=== PATIENT | female | born 1960 | race Hispanic/Latino ===

== ENCOUNTER 2016-10-30 21:44 | Inpatient (IN) | payer OTHER ==
[2016-10-30] MEDS ORDERED: ROCEPHIN IM ONE (22:36)
[2016-10-30] MEDS ORDERED: NACL 0.9% 1000 ML 1,000 ML IV ONE (22:36)
[2016-10-30] MEDS ORDERED: ZITHROMAX 500 MG in NACL 0.9% 250ML 250 ML IV ONE (22:36)
[2016-10-30] MEDS ORDERED: PROVENTIL IH ONE (22:36)
--- NOTE | 2016-10-30 22:42 | Emergency Department Report ---
ED Shortness of Breath HPI - General Chief Complaint: Dyspnea/Respdistress Stated Complaint: VERNON Time Seen by Provider: 10/30/16 22:17 Source: patient, EMS Mode of arrival: Stretcher Limitations: No Limitations - History of Present Illness MD Complaint: shortness of breath, cough -: Gradual Severity: moderate Quality: dull, aching Consistency: constant Improves With: nothing Worsens With: nothing Known History Of: COPD, asthma, congestive heart failure, recurrent pnemonia Context: recent URI Associated Symptoms: fever, cough, sputum production, hemoptysis Treatments Prior to Arrival: oxygen - Related Data Home Oxygen Therapy: No Previous Rx's Medication Instructions Recorded Last Taken Type Atenolol [Tenormin] 50 mg PO DAILY #30 tablet 08/30/15 Unknown Rx Budesonide [Pulmicort Respules] 0.5 mg IH Q12HRT #100 nebu 08/30/15 Unknown Rx Docusate Sodium [Colace CAP] 100 mg PO BID #30 capsule 08/30/15 Unknown Rx Famotidine [Pepcid] 10 mg PO BID #60 tablet 08/30/15 Unknown Rx Promethazine [Phenergan SUPPOS] 25 mg NH Q6HR PRN #14 supp.rect 08/30/15 Unknown Rx Zolpidem [Ambien] 5 mg PO QHS #30 tablet 08/30/15 Unknown Rx Ibuprofen [Motrin 400 MG tab] 400 mg PO Q8H PRN #30 tablet 04/06/16 Unknown Rx ALPRAZolam [Xanax TAB] 1 mg PO QDAY PRN #10 tablet 10/31/16 Unknown Rx HYDROcodone/APAP 10-325 [[place] 1 each PO BID #10 tablet 10/31/16 Unknown Rx 10-325 mg TAB] Allergies Allergy/AdvReac Type Severity Reaction Status Date / Time metoclopramide HCl Allergy Hives Verified 04/06/16 03:54 [From Reglan] ondansetron HCl [From Zofran] Allergy Hives Verified 04/06/16 03:54 ED Review of Systems ROS: Stated complaint: VERNON Other details as noted in HPI Comment: All other systems reviewed and negative ED Past Medical Hx - Past Medical History Hx Hypertension: Yes Hx Congestive Heart Failure: Yes Hx Diabetes: No Hx Renal Disease: Yes (chronic renal insufficiency) Hx Arthritis: Yes (rheumatoid) Hx Asthma: No Hx COPD: Yes Hx Dementia: (forgetful at times) Hx HIV: No Additional medical history: Pancreatitis. Hepatitis C. chronic back pain. restless leg syndrome - Surgical History Hx Cholecystectomy: Yes - Social History Smoking Status: Current Every Day Smoker Substance Use Type: None - Medications Home Medications: Home Medications Medication Instructions Recorded Confirmed Last Taken Type Atenolol [Tenormin] 50 mg PO DAILY #30 tablet 08/30/15 04/06/16 Unknown Rx Budesonide [Pulmicort Respules] 0.5 mg IH Q12HRT #100 nebu 08/30/15 04/06/16 Unknown Rx Docusate Sodium [Colace CAP] 100 mg PO BID #30 capsule 08/30/15 04/06/16 Unknown Rx Famotidine [Pepcid] 10 mg PO BID #60 tablet 08/30/15 04/06/16 Unknown Rx Promethazine [Phenergan SUPPOS] 25 mg NH Q6HR PRN #14 supp.rect 08/30/15 Unknown Rx Zolpidem [Ambien] 5 mg PO QHS #30 tablet 08/30/15 04/06/16 Unknown Rx Ibuprofen [Motrin 400 MG tab] 400 mg PO Q8H PRN #30 tablet 04/06/16 Unknown Rx ALPRAZolam [Xanax TAB] 1 mg PO QDAY PRN #10 tablet 10/31/16 Unknown Rx HYDROcodone/APAP 10-325 [[place] 1 each PO BID #10 tablet 10/31/16 Unknown Rx 10-325 mg TAB] ED Physical Exam - General Limitations: No Limitations General appearance: alert, in no apparent distress - Head Head exam: Present: atraumatic, normocephalic - Eye Eye exam: Present: normal appearance, PERRL, EOMI - ENT ENT exam: Present: normal exam, normal orophraynx, mucous membranes moist - Neck Neck exam: Present: normal inspection - Respiratory Respiratory exam: Present: normal lung sounds bilaterally, wheezes, rhonchi, decreased breath sounds, prolonged expiratory. Absent: respiratory distress, rales, stridor, chest wall tenderness, accessory muscle use - Cardiovascular Cardiovascular Exam: Present: regular rate, normal rhythm. Absent: systolic murmur, diastolic murmur, rubs, gallop - GI/Abdominal GI/Abdominal exam: Present: soft, normal bowel sounds - Extremities Exam Extremities exam: Present: normal inspection - Back Exam Back exam: Present: normal inspection - Neurological Exam Neurological exam: Present: alert, oriented X3 - Psychiatric Psychiatric exam: Present: normal affect, normal mood - Skin Skin exam: Present: warm, dry, intact, normal color. Absent: rash ED Course Vital Signs 10/30/16 10/30/16 10/30/16 21:56 22:00 22:05 Temperature 97.5 F L Pulse Rate 90 89 93 H Pulse Rate [ Anterior Bilateral Throughout] Respiratory 20 12 20 Rate Respiratory Rate [Anterior Bilateral Throughout] Blood Pressure 112/68 112/68 O2 Sat by Pulse 98 94 99 Oximetry 10/30/16 10/30/16 10/30/16 22:15 22:21 22:40 Temperature Pulse Rate 90 Pulse Rate [ Anterior Bilateral Throughout] Respiratory 12 Rate Respiratory Rate [Anterior Bilateral Throughout] Blood Pressure 112/68 112/68 100/66 O2 Sat by Pulse 83 L 96 93 Oximetry 10/30/16 10/30/16 10/30/16 22:51 23:00 23:08 Temperature Pulse Rate 86 87 Pulse Rate [ 87 Anterior Bilateral Throughout] Respiratory 12 17 Rate Respiratory 18 Rate [Anterior Bilateral Throughout] Blood Pressure 100/66 114/53 O2 Sat by Pulse 95 94 Oximetry 10/30/16 10/30/16 10/30/16 23:11 23:18 23:21 Temperature Pulse Rate 86 88 Pulse Rate [ 87 Anterior Bilateral Throughout] Respiratory 11 L 13 Rate Respiratory 18 Rate [Anterior Bilateral Throughout] Blood Pressure 100/66 120/66 O2 Sat by Pulse 97 96 Oximetry 10/30/16 10/30/16 10/30/16 23:30 23:41 23:48 Temperature Pulse Rate 90 92 H Pulse Rate [ Anterior Bilateral Throughout] Respiratory 12 12 Rate Respiratory Rate [Anterior Bilateral Throughout] Blood Pressure 110/64 114/53 O2 Sat by Pulse 94 94 97 Oximetry 10/31/16 10/31/16 00:29 00:30 Temperature Pulse Rate 98 H 96 H Pulse Rate [ Anterior Bilateral Throughout] Respiratory 17 12 Rate Respiratory Rate [Anterior Bilateral Throughout] Blood Pressure 113/71 134/77 O2 Sat by Pulse 96 97 Oximetry ED Medical Decision Making - Lab Data Result diagrams: 10/31/16 00:39 10/30/16 22:37 - EKG Data Interpretation: no acute changes - Radiology Data Radiology results: report reviewed, image reviewed - Medical Decision Making patient been doing well, labs negative and she is doing and breathing back to normal with 2 lt of oxygen, abx were given but no evidence of pneumonia, chest ct ruled out for PE after elevated ddimer, i do not see any reason for admission at this time , she is talking and walking and eating with no evidence of respiratory distress. 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 Critical care attestation.: If time is entered above; I have spent that time in minutes in the direct care of this critically ill patient, excluding procedure time. ED Disposition Clinical Impression: COPD (chronic obstructive pulmonary disease) with emphysema Disposition: TO HOME OR SELFCARE Is pt being admited?: No Does the pt Need Aspirin: No Condition: Stable Instructions: Chronic Obstructive Pulmonary Disease (ED) Prescriptions: ALPRAZolam [Xanax TAB] 1 mg PO QDAY PRN #10 tablet PRN Reason: Anxiety HYDROcodone/APAP 10-325 [[place] 10-325 mg TAB] 1 each PO BID #10 tablet Time of Disposition: 01:32
[2016-10-30] MEDS ORDERED: DILAUDID IV ONE (23:00)
[2016-10-30] MEDS ORDERED: ROCEPHIN/NS 1 GM/50 ML 1 GM/50 ML BAG IV ONE ×2 (23:01→23:17)
--- NOTE | 2016-10-30 23:17 | XRay Report ---
FINAL REPORT EXAM: XR CHEST ROUTINE 2V HISTORY: Shortness of breath TECHNIQUE: PA and lateral chest radiographs PRIORS: Chest radiograph 08/20/2015 FINDINGS: There is increased opacity in the right lung base. This was present on the prior examination as well. Left lung appears clear. No pleural effusion is seen. Heart size is within normal limits. No acute osseous abnormality is identified. IMPRESSION: 1. There is increased opacity in the right middle lobe. This may be secondary to infection, but neoplastic process is not excluded. This can be further assessed with CT if indicated. Continued follow-up is recommended to assure resolution.
[2016-10-30 23:41] LABS: Anion Gap 19 mmol/L; BUN/Creatinine Ratio 17.27; Blood Urea Nitrogen 19 mg/dL (7-17); Calcium 8.6 mg/dL (8.4-10.2); Carbon Dioxide 20 mmol/L (22-30); Chloride 102.4 mmol/L (98-107); Glucose 103 mg/dL (65-100); Potassium 3.9 mmol/L (3.6-5.0); Sodium 137 mmol/L (137-145)
[2016-10-31] MEDS ORDERED: NACL ONE (00:05)
--- NOTE | 2016-10-31 01:03 | Cat Scan Report ---
FINAL REPORT PROCEDURE: CT ANGIO CHEST TECHNIQUE: Computerized tomographic angiography of the chest was performed during the IV injection of iodinated nonionic contrast including image processing. The image data was postprocessed using 2-dimensional multiplanar reformatted (MPR) and 3-dimensional (MIP and/or volume rendered) techniques. HISTORY: chest pain / sob possible PE COMPARISON: No prior studies are available for comparison. FINDINGS: Pulmonary outflow tract, right and left main pulmonary arteries and their proximal branches: Clear, no filling defects seen to suggest pulmonary embolus. Pericardium: No evidence of pericardial effusion. Thoracic aorta: No evidence of aneurysmal dilatation or dissection. Coronary arteries: Are unremarkable. Mediastinum and hilar regions: Nonspecific subcentimeter lymph nodes are visualized. No pathologically enlarged lymph nodes or masses are identified. Lung Carpenter: Moderate diffuse centrilobular emphysematous changes are present. Diffuse prominence interstitial markings seen throughout the right lower lobe and also extending into the right middle lobe and to a lesser extent left lower lobe suggesting acute interstitial infiltrate. No dense consolidations or effusions are identified. Upper abdomen: No acute or focal abnormality is seeen. Other: None IMPRESSION: No evidence of pulmonary embolus. Moderate diffuse centrilobular emphysematous changes present. Diffuse interstitial infiltrates visualized throughout the right lower lobe right middle lobe and to a lesser extent left lower lobe.
[2016-10-31 01:07] LABS: Basophils % (Auto) 0.2 % (0.0-1.8); Eosinophils % (Auto) 0.2 % (0.0-4.3); Hematocrit 33.4 % (30.3-42.9); Hemoglobin 10.7 gm/dl (10.1-14.3); Mean Corpuscular HGB Conc 32 % (30-34); Mean Corpuscular Hemoglobin 32 pg (28-32); Mean Corpuscular Volume 101 fl (79-97); Platelet Count 178 K/mm3 (140-440); Red Blood Count 3.31 M/mm3 (3.65-5.03); Red Cell Distribution Width 14.3 % (13.2-15.2); White Blood Count 8.6 K/mm3 (4.5-11.0)
[2016-10-31] MEDS ORDERED: NORCO 10/325 PO ONE (01:53)
[2016-10-31] MEDS ORDERED: PHENERGAN PO PRN (02:26)
[2016-10-31] MEDS: MORPHINE IV PRN ×2 (02:41→09:34)
[2016-10-31 03:23] LABS: ISTAT Base Excess -11; ISTAT DEVICE 0; ISTAT HCO3 16.5; ISTAT PCO2 41.2 (35-45); ISTAT PO2 54 (80-105); ISTAT SO2 81; ISTAT TCO2 18
--- NOTE | 2016-10-31 07:52 | Admit Criteria Form ---
Admission Criteria Documentation: COPD Clinical Indications for Admission to Inpatient Care (Place 'X' for any and all applicable criteria): Admission is indicated for ANY ONE of the following (1)(2)(3): [ ]I. Acute exacerbation by high-risk comorbidity (e.g., pneumonia, dysrhythmia, heart failure, pleural effusion, pneumothorax) or severe underlying COPD (e.g., steroid dependent) [ X]II. Inpatient admission required rather than observation care (see Chronic Obstructive Pulmonary Disease: Observation Care) because of ANY ONE of the following: [ X]a) New or pre-existing signs or symptoms of COPD (eg, dyspnea or Tachypnea at rest or with minimal activity) that persist despite outpatient and observation care treatment [ ]b) New-onset hypoxemia (room air SaO2 less than 90%, PO2 less than 60 mm Hg (8.0 kPa)) that persists despite outpatient and observation care treatment [ ]c) Worsening of pre-existing hypoxemia (eg, new or increased requirement for supplemental oxygen to maintain oxygenation at baseline level) that persists despite outpatient and observation care treatment, with oxygen treatment needs performable only in acute inpatient setting [ ]d) Hypercarbia (PCO2 greater than 40 mm Hg (5.3 kPa))-induced respiratory acidosis (pH less than 7.35) that persists despite outpatient and observation care treatment [ ]e) Supplemental oxygen or respiratory treatments for over 24 hours that are performable only in acute inpatient setting [ ]f) Chest tube placement with active evacuation (e.g., suction, drainage) (5) [ ]g) Other condition, treatment or monitoring requiring inpatient admission [ ]III. Planned invasive surgical or diagnostic procedures requiring acute- care hospitalization [ ]IV. Acute respiratory failure (e.g., uncompensated hypercarbia, severe hypoxemia) [ ]V. Severe comorbid condition (e.g., severe steroid myopathy, acute vertebral fracture) that has acutely worsened pulmonary function [ ]. Confusion state, lethargy, obtundation, stupor or coma Extended stay beyond goal length of stay may be needed for (31)(32): [ ]a ) Respiratory Failure. [ ]b) Severe or persisting hypoxemia or hypercarbia [ ]c) Severe or persistent dyspnea [ ]d) Comorbidities (e.g. chronic heart failure, atrial fibrillation with rapid response, pneumonia) [ ]e) Malnutrition The original [facility] content created by [facility] has been revised. The portions of the content which have been revised are identified through the use of italic text or in bold, and [facility] has neither reviewed nor approved the modified material. All other unmodified content is copyright [facility]. Please see references footnoted in the original [facility] edition 2016 Admission Criteria Met: Yes
[2016-10-31] MEDS ORDERED: XYLOCAINE 1% MPF 5 mL INFILTRATI ONE (09:01)
[2016-10-31] MEDS ORDERED: ZOFRAN IV PRN (09:03)
[2016-10-31] MEDS ORDERED: TYLENOL PO PRN (09:03)
[2016-10-31] MEDS ORDERED: DULCOLAX PR PRN (09:03)
[2016-10-31] MEDS ORDERED: MILK OF MAGNESIA PO PRN (10:00)
[2016-10-31] MEDS ORDERED: ZITHROMAX 500 MG in NACL 0.9% 250ML 250 ML IV ONE (10:00)
[2016-10-31] MEDS ORDERED: ATENOLOL 50 MG PO SCH (10:00)
[2016-10-31] MEDS ORDERED: ROCEPHIN IM SCH (10:00)
[2016-10-31] MEDS ORDERED: MORPHINE IV PRN (11:00)
[2016-10-31] MEDS: PEPCID PO SCH ×2 (11:31→22:39)
[2016-10-31] MEDS: TENORMIN PO SCH (13:21)
[2016-10-31] MEDS: LOVENOX SUB-Q SCH (13:22)
--- NOTE | 2016-10-31 13:25 | History and Physical Report ---
<REBECCA PERDOMO - Last Filed: 10/31/16 14:31> History of Present Illness Date of examination: 10/31/16 Date of admission: 10/31/16 09:03 Chief complaint: Cough and shortness of breath History of present illness: Patient is a 56 year old female with past medical historyof COPD, HTN and GERD who presenting with 3 weeks of worsening dyspnea on light exertion, and bloody cough. Patient over a week ago the patient was at his normal baseline state of health. Now she has had progressive worsening of his dyspnea on exertion (SEGURA) to where she cannot walk across a room or talk while sitting up without becoming short of breath. She says the quality of her breathing is just like suffocating but she denies burning in her lungs or other feelings. she says that hot temperatures bring on her breathing troubles and coughing while cold temperatures will help relieve those symptoms. Additionally, she has a productive cough with blood tinged sputum. She has tried oxygen supplement to help her with her shortness of breath, but did not help much. She has had no fevers, chills, or night sweats. He has no allergies, seasonal or otherwise. She reports feeling like she is wheezing. She denies orthopnea, and no paroxysmal nocturnal dyspnea. No hx of recurrent pneumonia. She has no sick contact, TB exposure that she knows of Past History Past Medical History: COPD, GERD, hypertension Past Surgical History: No surgical history Social history: no significant social history, Lives alone Family history: CAD, hypertension Medications and Allergies Allergies Allergy/AdvReac Type Severity Reaction Status Date / Time metoclopramide HCl Allergy Hives Verified 04/06/16 03:54 [From Reglan] ondansetron HCl [From Zofran] Allergy Hives Verified 04/06/16 03:54 Home Medications Medication Instructions Recorded Confirmed Last Taken Type Atenolol [Tenormin] 50 mg PO DAILY #30 tablet 08/30/15 10/31/16 Unknown Rx Docusate Sodium [Colace CAP] 100 mg PO BID #30 capsule 08/30/15 10/31/16 Unknown Rx Famotidine [Pepcid] 10 mg PO BID #60 tablet 08/30/15 10/31/16 Unknown Rx Promethazine [Phenergan SUPPOS] 25 mg DC Q6HR PRN #14 supp.rect 08/30/15 Unknown Rx Zolpidem [Ambien] 5 mg PO QHS #30 tablet 08/30/15 10/31/16 Unknown Rx ALPRAZolam [Xanax TAB] 1 mg PO QDAY PRN #10 tablet 10/31/16 Unknown Rx ALPRAZolam [Xanax TAB] 1 mg PO TID PRN 10/31/16 10/31/16 Unknown History Budesoni/Formoterol 80-4.5(Nf) 2 puff IH BID 10/31/16 10/31/16 Unknown History [Symbicort 80-4.5 (Nf)] HYDROcodone/APAP 10-325 [[place] 1 each PO BID #10 tablet 10/31/16 Unknown Rx 10-325 mg TAB] Methadone 10 BID 10/31/16 Unknown History Active Meds: Active Medications Acetaminophen (Tylenol) 650 mg PO Q4H PRN PRN Reason: Pain MILD(1-3)/Fever >100.5/[place] Albuterol/Ipratropium (Duoneb 0.5 Mg-3 Mg/3 Ml Soln) 1 ampul IH Q6HRT [facility] Atenolol (Tenormin) 50 mg PO QDAY [facility] Bisacodyl (Dulcolax) 10 mg DC QDAY PRN PRN Reason: Constipation unrelieved by MOM Enoxaparin Sodium (Lovenox) 40 mg SUB-Q QDAY [facility] Famotidine (Pepcid) 10 mg PO BID [facility] Last Admin: 10/31/16 11:31 Dose: 10 mg Ceftriaxone Sodium (Rocephin/Ns 1 Gm/50 Ml) 1 gm in 50 mls @ 100 mls/hr IV QHS [place] Magnesium Hydroxide (Milk Of Magnesia) 30 ml PO Q4H PRN PRN Reason: Constipation Methylprednisolone Sodium Succinate (Solu-Medrol) 40 mg IV Q6HR [place] Morphine Sulfate (Morphine) 4 mg IV Q6H PRN PRN Reason: Pain , Severe (7-10) Last Admin: 10/31/16 09:34 Dose: 4 mg Morphine Sulfate (Morphine) 2 mg IV Q4H PRN PRN Reason: Pain, Moderate (4-6) Pneumococcal Polyvalent Vaccine (Pneumovax 23) 0.5 ml IM .ONCE ONE Stop: 11/01/16 12:01 Promethazine HCl (Phenergan) 12.5 mg PO Q6H PRN PRN Reason: Nausea Last Admin: 10/31/16 02:45 Dose: 12.5 mg Zolpidem Tartrate (Ambien) 5 mg PO QHS [facility] Review of Systems Constitutional: no weight loss, no weight gain, no fever, no chills Ears, nose, mouth and throat: no deferred, no ear pain, no ear discharge Cardiovascular: no chest pain, no orthopnea, no palpitations Respiratory: no cough, no cough with sputum, no excessive sputum Gastrointestinal: no abdominal pain, no nausea, no vomiting, no diarrhea, no constipation Genitourinary Female: no dyspareunia, no dysmenorrhea, no pelvic pain Menstruation: no currently menstrual, no premenarcheal, no post hysterectomy, no ammenorrhea Rectal: no pain, no incontinence Musculoskeletal: no neck stiffness, no neck pain, no shooting arm pain Integumentary: no rash, no pruritis, no redness, no sores Neurological: no head injury, no transient paralysis, no paralysis, no weakness Psychiatric: no anxiety, no memory loss, no change in sleep habits, no sleep disturbances Endocrine: no cold intolerance, no heat intolerance, no polyphagia Hematologic/Lymphatic: no easy bruising, no easy bleeding Allergic/Immunologic: no urticaria, no allergic rhinitis Exam - Constitutional Vitals: Temp Pulse Resp BP Pulse Ox 98.1 F 83 22 133/75 95 10/31/16 13:00 10/31/16 13:00 10/31/16 13:00 10/31/16 13:00 10/31/16 13:00 General appearance: Present: mild distress - EENT Eyes: Present: PERRL ENT: hearing intact, clear oral mucosa - Neck Neck: Present: supple - Respiratory Respiratory effort: normal Respiratory: bilateral: wheezing - Cardiovascular Heart rate: 84 Rhythm: regular Heart Sounds: Present: S1 & S2 - Extremities Extremities: no ischemia Peripheral Pulses: within normal limits - Abdominal General gastrointestinal: Present: soft, non-tender - Rectal Rectal Exam: deferred - Integumentary Integumentary: Present: clear, warm, dry - Musculoskeletal Musculoskeletal: strength equal bilaterally - Psychiatric Psychiatric: appropriate mood/affect - Neurologic Neurologic: CNII-XII intact - Allied Health Allied health notes reviewed: nursing Results - Labs CBC & Chem 7: 10/31/16 00:39 10/30/16 22:37 Labs: Laboratory Last Values WBC 8.6 K/mm3 (4.5-11.0) 10/31/16 00:39 RBC 3.31 M/mm3 (3.65-5.03) L 10/31/16 00:39 Hgb 10.7 gm/dl (10.1-14.3) 10/31/16 00:39 Hct 33.4 % (30.3-42.9) 10/31/16 00:39 MCV 101 fl (79-97) H 10/31/16 00:39 MCH 32 pg (28-32) 10/31/16 00:39 MCHC 32 % (30-34) 10/31/16 00:39 RDW 14.3 % (13.2-15.2) 10/31/16 00:39 Plt Count 178 K/mm3 (140-440) 10/31/16 00:39 Lymph % (Auto) 9.3 % (13.4-35.0) L 07 00:39 [place] % (Auto) 3.5 % (0.0-7.3) 10/31/16 00:39 Eos % (Auto) 0.2 % (0.0-4.3) 10/31/16 00:39 Baso % (Auto) 0.2 % (0.0-1.8) 10/31/16 00:39 Lymph # 0.8 K/mm3 (1.2-5.4) L 10/31/16 00:39 [place] # 0.3 K/mm3 (0.0-0.8) 10/31/16 00:39 Eos # 0.0 K/mm3 (0.0-0.4) 10/31/16 00:39 Baso # 0.0 K/mm3 (0.0-0.1) 10/31/16 00:39 Seg Neutrophils % 86.8 % (40.0-70.0) H 10/31/16 00:39 Seg Neutrophils # 7.5 K/mm3 (1.8-7.7) 10/31/16 00:39 D-Dimer 1001.95 ng/mlDDU (0-234) H 10/30/16 22:37 POC ABG pH 7.210 (7.35-7.45) L 10/31/16 03:14 POC ABG pCO2 41.2 (35-45) 10/31/16 03:14 POC ABG pO2 54 (80-105) L 10/31/16 03:14 POC ABG HCO3 16.5 10/31/16 03:14 POC ABG Total CO2 18 10/31/16 03:14 POC ABG O2 Sat 81 10/31/16 03:14 POC ABG Base Excess -11 10/31/16 03:14 FiO2 21 % 10/31/16 03:14 Sodium 137 mmol/L (137-145) 10/30/16 22:37 Carbon Dioxide 20 mmol/L (22-30) L 10/30/16 22:37 BUN 19 mg/dL (7-17) H 10/30/16 22:37 Creatinine 1.1 mg/dL (0.7-1.2) 10/30/16 22:37 Estimated GFR 52 ml/min 10/30/16 22:37 BUN/Creatinine Ratio 17.27 % 10/30/16 22:37 Glucose 103 mg/dL (65-100) H 10/30/16 22:37 Lactic Acid 1.00 mmol/L (0.7-2.0) 10/30/16 22:53 Calcium 8.6 mg/dL (8.4-10.2) 10/30/16 22:37 Troponin T < 0.010 ng/mL (0.00-0.029) 10/30/16 22:37 - Imaging and Cardiology CT scan - abdomen: image reviewed (Right lower lobe and the right middle lobe with acute interstitial infiltration) Assessment and Plan Assessment and plan: ASSESSMENT/PLAN Pneumonia we will admite to MED/SURG floor. Chest x-ray reveals Right lower lobe and the right middle lobe with acute interstitial infiltration Blood culture collected prior antibiotic and we will follow cultures Continue on empiric antibiotic treatment IV Rocephin and azithromycin Continue nebulizer therapy ordered supplemental oxygen as needed Discussed the patient to use Incentive spirometry, Elevated d-dimer CTA shows low risk for pulmonary embolism Doppler VL Bilateral ordered Hypertension we will continue home antihypertensive meds GERD IV Protonix ordered DVT prophylaxis Lovenox <DILIP BOB - Last Filed: 10/31/16 19:14> History of Present Illness Date of admission: 10/31/16 09:03 Medications and Allergies Active Meds: Active Medications Acetaminophen (Tylenol) 650 mg PO Q4H PRN PRN Reason: Pain MILD(1-3)/Fever >100.5/[place] Acetaminophen/Hydrocodone Bitart ([place] 10/325) 1 each PO Q6H PRN PRN Reason: Pain, Moderate (4-6) Last Admin: 10/31/16 18:57 Dose: 1 each Albuterol/Ipratropium (Duoneb 0.5 Mg-3 Mg/3 Ml Soln) 1 ampul IH Q6HRT [facility] Last Admin: 10/31/16 13:32 Dose: 1 ampul Alprazolam (Xanax) 1 mg PO TID PRN PRN Reason: Anxiety Last Admin: 10/31/16 16:56 Dose: 1 mg Atenolol (Tenormin) 50 mg PO QDAY [facility] Last Admin: 10/31/16 13:21 Dose: 50 mg Bisacodyl (Dulcolax) 10 mg DC QDAY PRN PRN Reason: Constipation unrelieved by MOM Docusate Sodium (Colace) 100 mg PO BID [facility] Enoxaparin Sodium (Lovenox) 40 mg SUB-Q QDAY [facility] Last Admin: 10/31/16 13:22 Dose: 40 mg Famotidine (Pepcid) 10 mg PO BID [facility] Last Admin: 10/31/16 11:31 Dose: 10 mg Ceftriaxone Sodium (Rocephin/Ns 1 Gm/50 Ml) 1 gm in 50 mls @ 100 mls/hr IV QHS [facility] Magnesium Hydroxide (Milk Of Magnesia) 30 ml PO Q4H PRN PRN Reason: Constipation Methadone HCl (Dolophine) 10 mg PO BID [facility] Methylprednisolone Sodium Succinate (Solu-Medrol) 40 mg IV Q6HR [facility] Last Admin: 10/31/16 18:37 Dose: 40 mg Nicotine (Habitrol) 21 mg TD QDAY [facility] Last Admin: 10/31/16 16:56 Dose: 21 mg Pneumococcal Polyvalent Vaccine (Pneumovax 23) 0.5 ml IM .ONCE ONE Stop: 11/01/16 12:01 Promethazine HCl (Phenergan) 12.5 mg PO Q6H PRN PRN Reason: Nausea Last Admin: 10/31/16 02:45 Dose: 12.5 mg Zolpidem Tartrate (Ambien) 5 mg PO QHS [facility] Exam - Constitutional Vitals: Temp Pulse Resp BP Pulse Ox 99.1 F 85 22 133/72 97 10/31/16 14:57 10/31/16 14:57 10/31/16 14:57 10/31/16 14:57 10/31/16 14:57 Results - Labs CBC & Chem 7: 10/31/16 00:39 10/30/16 22:37 Labs: Laboratory Last Values WBC 8.6 K/mm3 (4.5-11.0) 10/31/16 00:39 RBC 3.31 M/mm3 (3.65-5.03) L 10/31/16 00:39 Hgb 10.7 gm/dl (10.1-14.3) 10/31/16 00:39 Hct 33.4 % (30.3-42.9) 10/31/16 00:39 MCV 101 fl (79-97) H 10/31/16 00:39 MCH 32 pg (28-32) 10/31/16 00:39 MCHC 32 % (30-34) 10/31/16 00:39 RDW 14.3 % (13.2-15.2) 10/31/16 00:39 Plt Count 178 K/mm3 (140-440) 10/31/16 00:39 Lymph % (Auto) 9.3 % (13.4-35.0) L 10/31/16 00:39 [place] % (Auto) 3.5 % (0.0-7.3) 10/31/16 00:39 Eos % (Auto) 0.2 % (0.0-4.3) 10/31/16 00:39 Baso % (Auto) 0.2 % (0.0-1.8) 10/31/16 00:39 Lymph # 0.8 K/mm3 (1.2-5.4) L 10/31/16 00:39 [place] # 0.3 K/mm3 (0.0-0.8) 10/31/16 00:39 Eos # 0.0 K/mm3 (0.0-0.4) 10/31/16 00:39 Baso # 0.0 K/mm3 (0.0-0.1) 10/31/16 00:39 Seg Neutrophils % 86.8 % (40.0-70.0) H 10/31/16 00:39 Seg Neutrophils # 7.5 K/mm3 (1.8-7.7) 10/31/16 00:39 D-Dimer 1001.95 ng/mlDDU (0-234) H 10/30/16 22:37 POC ABG pH 7.210 (7.35-7.45) L 10/31/16 03:14 POC ABG pCO2 41.2 (35-45) 10/31/16 03:14 POC ABG pO2 54 (80-105) L 10/31/16 03:14 POC ABG HCO3 16.5 10/31/16 03:14 POC ABG Total CO2 18 10/31/16 03:14 POC ABG O2 Sat 81 10/31/16 03:14 POC ABG Base Excess -11 10/31/16 03:14 FiO2 21 % 10/31/16 03:14 Sodium 137 mmol/L (137-145) 10/30/16 22:37 Carbon Dioxide 20 mmol/L (22-30) L 10/30/16 22:37 BUN 19 mg/dL (7-17) H 10/30/16 22:37 Creatinine 1.1 mg/dL (0.7-1.2) 10/30/16 22:37 Estimated GFR 52 ml/min 10/30/16 22:37 BUN/Creatinine Ratio 17.27 % 10/30/16 22:37 Glucose 103 mg/dL (65-100) H 10/30/16 22:37 Lactic Acid 1.00 mmol/L (0.7-2.0) 10/30/16 22:53 Calcium 8.6 mg/dL (8.4-10.2) 10/30/16 22:37 Troponin T < 0.010 ng/mL (0.00-0.029) 10/30/16 22:37 Assessment and Plan Assessment and plan: I saw and evaluated the patient. I agree with the findings and the plan of care as documented in the Nurse Practitioner's~note, with the following corrections and additions. COPD EXACERBATION.
[2016-10-31] MEDS: DUONEB *Not for PRN Use IH SCH ×2 (13:32→20:48)
[2016-10-31] MEDS: HABITROL TD SCH (16:56)
[2016-10-31] MEDS: XANAX PO PRN ×2 (16:56→22:40)
[2016-10-31] MEDS ORDERED: NORCO 10/325 PO PRN (17:20)
[2016-10-31] MEDS ORDERED: PHENERGAN PR PRN (19:14)
[2016-10-31] MEDS ORDERED: ROCEPHIN/NS 1 GM/50 ML 1 GM/50 ML BAG IV SCH (22:00)
[2016-10-31] MEDS ORDERED: METHADONE 10 MG PO SCH (22:00)
[2016-10-31] MEDS ORDERED: DOLOPHINE PO SCH (22:00)
[2016-10-31] MEDS: DOLOPHINE PO SCH (22:40)
[2016-10-31] MEDS: AMBIEN PO SCH (22:41)
[2016-10-31] MEDS: COLACE PO SCH (22:41)
[2016-11-01] MEDS: AMBIEN PO SCH (00:09)
[2016-11-01] MEDS: DUONEB *Not for PRN Use IH SCH ×3 (03:38→14:36)
--- NOTE | 2016-11-01 07:17 | Progress Note ---
<REBECCA PERDOMO - Last Filed: 11/01/16 11:24> Assessment and Plan Assessment and plan: ASSESSMENT/PLAN Pneumonia Chest x-ray reveals Right lower lobe and the right middle lobe with acute interstitial infiltration Blood culture collected prior antibiotic and we will follow cultures Continue on empiric antibiotic treatment IV Rocephin and azithromycin Continue nebulizer therapy supplemental oxygen as needed Discussed the patient to use Incentive spirometry, COPD Exacerbation Continue Duoneb Q6hrs Continue Solu-Medrol every 6 hours Elevated d-dimer CTA shows low risk for pulmonary embolism Awaiting for Doppler VL Bilateral findings Hypertension we will continue home antihypertensive meds GERD IV Protonix ordered DVT prophylaxis Lovenox History Interval history: Patient has uneventful overnight, she verbalized feeing better. patient complains Dyspnea on exertion, but denies bloody cough. Hospitalist Physical - Constitutional Vitals: Temp Pulse Resp BP Pulse Ox 98.3 F 83 16 166/82 95 10/31/16 23:00 10/31/16 23:00 10/31/16 23:00 10/31/16 23:00 10/31/16 23:00 General appearance: Present: mild distress - EENT Eyes: Present: PERRL ENT: hearing intact - Neck Neck: Present: supple - Respiratory Respiratory effort: normal Respiratory: bilateral: rales - Cardiovascular Heart rate: 78 Rhythm: regular - Extremities Extremities: no ischemia Peripheral Pulses: within normal limits - Abdominal General gastrointestinal: soft, non-tender - Integumentary Integumentary: Present: clear, warm - Psychiatric Psychiatric: appropriate mood/affect - Neurologic Neurologic: CNII-XII intact - Allied Health Allied health notes reviewed: nursing Results - Labs CBC & Chem 7: 11/01/16 07:35 11/01/16 07:35 Labs: Laboratory Last Values WBC 8.6 K/mm3 (4.5-11.0) 10/31/16 00:39 RBC 3.31 M/mm3 (3.65-5.03) L 10/31/16 00:39 Hgb 10.7 gm/dl (10.1-14.3) 10/31/16 00:39 Hct 33.4 % (30.3-42.9) 10/31/16 00:39 MCV 101 fl (79-97) H 10/31/16 00:39 MCH 32 pg (28-32) 10/31/16 00:39 MCHC 32 % (30-34) 10/31/16 00:39 RDW 14.3 % (13.2-15.2) 10/31/16 00:39 Plt Count 178 K/mm3 (140-440) 07 00:39 Lymph % (Auto) 9.3 % (13.4-35.0) L 10/31/16 00:39 [place] % (Auto) 3.5 % (0.0-7.3) 10/31/16 00:39 Eos % (Auto) 0.2 % (0.0-4.3) 10/31/16 00:39 Baso % (Auto) 0.2 % (0.0-1.8) 10/31/16 00:39 Lymph # 0.8 K/mm3 (1.2-5.4) L 10/31/16 00:39 [place] # 0.3 K/mm3 (0.0-0.8) 10/31/16 00:39 Eos # 0.0 K/mm3 (0.0-0.4) 10/31/16 00:39 Baso # 0.0 K/mm3 (0.0-0.1) 07 00:39 Seg Neutrophils % 86.8 % (40.0-70.0) H 10/31/16 00:39 Seg Neutrophils # 7.5 K/mm3 (1.8-7.7) 10/31/16 00:39 D-Dimer 1001.95 ng/mlDDU (0-234) H 10/30/16 22:37 POC ABG pH 7.210 (7.35-7.45) L 10/31/16 03:14 POC ABG pCO2 41.2 (35-45) 10/31/16 03:14 POC ABG pO2 54 (80-105) L 10/31/16 03:14 POC ABG HCO3 16.5 10/31/16 03:14 POC ABG Total CO2 18 10/31/16 03:14 POC ABG O2 Sat 81 10/31/16 03:14 POC ABG Base Excess -11 10/31/16 03:14 FiO2 21 % 10/31/16 03:14 Sodium 137 mmol/L (137-145) 10/30/16 22:37 Carbon Dioxide 20 mmol/L (22-30) L 10/30/16 22:37 BUN 19 mg/dL (7-17) H 10/30/16 22:37 Creatinine 1.1 mg/dL (0.7-1.2) 10/30/16 22:37 Estimated GFR 52 ml/min 10/30/16 22:37 BUN/Creatinine Ratio 17.27 % 10/30/16 22:37 Glucose 103 mg/dL (65-100) H 10/30/16 22:37 Lactic Acid 1.00 mmol/L (0.7-2.0) 10/30/16 22:53 Calcium 8.6 mg/dL (8.4-10.2) 10/30/16 22:37 Troponin T < 0.010 ng/mL (0.00-0.029) 10/30/16 22:37 <DILIP BOB - Last Filed: 11/01/16 15:40> Assessment and Plan Assessment and plan: I saw and evaluated the patient. I agree with the findings and the plan of care as documented in the Nurse Practitioner's~note, with the following corrections and additions. Hospitalist Physical - Constitutional Vitals: Temp Pulse Resp BP Pulse Ox 98.3 F 87 18 156/90 95 11/01/16 15:19 11/01/16 15:19 11/01/16 15:19 11/01/16 15:19 11/01/16 08:46 Results - Labs CBC & Chem 7: 11/01/16 07:35 11/01/16 07:35 Labs: Laboratory Last Values WBC 7.4 K/mm3 (4.5-11.0) 11/01/16 07:35 RBC 3.47 M/mm3 (3.65-5.03) L 11/01/16 07:35 Hgb 11.1 gm/dl (10.1-14.3) 11/01/16 07:35 Hct 33.9 % (30.3-42.9) 11/01/16 07:35 MCV 98 fl (79-97) H D 11/01/16 07:35 MCH 32 pg (28-32) 11/01/16 07:35 MCHC 33 % (30-34) 11/01/16 07:35 RDW 13.8 % (13.2-15.2) 11/01/16 07:35 Plt Count 231 K/mm3 (140-440) 11/01/16 07:35 Lymph % (Auto) 8.2 % (13.4-35.0) L 11/01/16 07:35 [place] % (Auto) 3.3 % (0.0-7.3) 11/01/16 07:35 Eos % (Auto) 0.1 % (0.0-4.3) 11/01/16 07:35 Baso % (Auto) 0.1 % (0.0-1.8) 11/01/16 07:35 Lymph # 0.6 K/mm3 (1.2-5.4) L 11/01/16 07:35 [place] # 0.2 K/mm3 (0.0-0.8) 11/01/16 07:35 Eos # 0.0 K/mm3 (0.0-0.4) 11/01/16 07:35 Baso # 0.0 K/mm3 (0.0-0.1) 11/01/16 07:35 Seg Neutrophils % 88.3 % (40.0-70.0) H 11/01/16 07:35 Seg Neutrophils # 6.5 K/mm3 (1.8-7.7) 11/01/16 07:35 D-Dimer 1001.95 ng/mlDDU (0-234) H 10/30/16 22:37 POC ABG pH 7.210 (7.35-7.45) L 10/31/16 03:14 POC ABG pCO2 41.2 (35-45) 10/31/16 03:14 POC ABG pO2 54 (80-105) L 10/31/16 03:14 POC ABG HCO3 16.5 10/31/16 03:14 POC ABG Total CO2 18 10/31/16 03:14 POC ABG O2 Sat 81 10/31/16 03:14 POC ABG Base Excess -11 10/31/16 03:14 FiO2 21 % 10/31/16 03:14 Sodium 140 mmol/L (137-145) 11/01/16 07:35 Potassium 4.9 mmol/L (3.6-5.0) D 11/01/16 07:35 Chloride 102.7 mmol/L (98-107) 11/01/16 07:35 Carbon Dioxide 24 mmol/L (22-30) 11/01/16 07:35 Anion Gap 18 mmol/L 11/01/16 07:35 BUN 11 mg/dL (7-17) 11/01/16 07:35 Creatinine 0.6 mg/dL (0.7-1.2) L 11/01/16 07:35 Estimated GFR > 60 ml/min 11/01/16 07:35 BUN/Creatinine Ratio 18.33 % 11/01/16 07:35 Glucose 129 mg/dL (65-100) H 11/01/16 07:35 Lactic Acid 1.00 mmol/L (0.7-2.0) 10/30/16 22:53 Calcium 9.0 mg/dL (8.4-10.2) 11/01/16 07:35 Troponin T < 0.010 ng/mL (0.00-0.029) 10/30/16 22:37
[2016-11-01 08:16] LABS: Basophils % (Auto) 0.1 % (0.0-1.8); Eosinophils % (Auto) 0.1 % (0.0-4.3); Hematocrit 33.9 % (30.3-42.9); Hemoglobin 11.1 gm/dl (10.1-14.3); Mean Corpuscular HGB Conc 33 % (30-34); Mean Corpuscular Hemoglobin 32 pg (28-32); Mean Corpuscular Volume 98 fl (79-97); Platelet Count 231 K/mm3 (140-440); Red Blood Count 3.47 M/mm3 (3.65-5.03); Red Cell Distribution Width 13.8 % (13.2-15.2); White Blood Count 7.4 K/mm3 (4.5-11.0)
[2016-11-01 08:25] LABS: Anion Gap 18 mmol/L; BUN/Creatinine Ratio 18.33; Blood Urea Nitrogen 11 mg/dL (7-17); Carbon Dioxide 24 mmol/L (22-30); Chloride 102.7 mmol/L (98-107); Glucose 129 mg/dL (65-100); Sodium 140 mmol/L (137-145)
[2016-11-01 08:28] LABS: Potassium 4.9 mmol/L (3.6-5.0)
[2016-11-01] MEDS: HABITROL TD SCH (09:04)
[2016-11-01] MEDS: PEPCID PO SCH (09:04)
[2016-11-01] MEDS: LOVENOX SUB-Q SCH (09:04)
[2016-11-01] MEDS: COLACE PO SCH (09:05)
[2016-11-01] MEDS: DOLOPHINE PO SCH (09:05)
[2016-11-01] MEDS: TENORMIN PO SCH (09:05)
[2016-11-01] MEDS: ROBITUSSIN DM PO PRN ×2 (09:20→13:35)
[2016-11-01] MEDS ORDERED: NORCO 10/325 PO PRN (10:35)
[2016-11-01] MEDS ORDERED: PNEUMOVAX 23 IM ONE (12:00)
--- NOTE | 2016-11-01 13:28 | Consultation ---
History of Present Illness Consult date: 11/01/16 Requesting physician: DILIP BOB Reason for consult: COPD History of present illness: 56 y/o female, not followed by an outside pulm doc, has seen the other group every admission comes in 2-3 days ago for shortness of breath. Diagnosed with pneumonia and COPD. Currently on IV steroids abx and supplemental oxygen therapy. Per patient she wants to go home. She does not take any meds for COPD and is still smoking. No family at bedside. Past History Past Medical History: COPD, GERD, hypertension Past Surgical History: No surgical history Social history: no significant social history, Lives alone Family history: CAD, hypertension Medications and Allergies Allergies Allergy/AdvReac Type Severity Reaction Status Date / Time metoclopramide HCl Allergy Hives Verified 04/06/16 03:54 [From Reglan] ondansetron HCl [From Zofran] Allergy Hives Verified 04/06/16 03:54 Home Medications Medication Instructions Recorded Confirmed Last Taken Type Atenolol [Tenormin] 50 mg PO DAILY #30 tablet 08/30/15 10/31/16 Unknown Rx Docusate Sodium [Colace CAP] 100 mg PO BID #30 capsule 08/30/15 10/31/16 Unknown Rx Famotidine [Pepcid] 10 mg PO BID #60 tablet 08/30/15 10/31/16 Unknown Rx Promethazine [Phenergan SUPPOS] 25 mg NV Q6HR PRN #14 supp.rect 08/30/15 Unknown Rx Zolpidem [Ambien] 5 mg PO QHS #30 tablet 08/30/15 10/31/16 Unknown Rx ALPRAZolam [Xanax TAB] 1 mg PO QDAY PRN #10 tablet 10/31/16 Unknown Rx ALPRAZolam [Xanax TAB] 1 mg PO TID PRN 10/31/16 10/31/16 Unknown History Budesoni/Formoterol 80-4.5(Nf) 2 puff IH BID 10/31/16 10/31/16 Unknown History [Symbicort 80-4.5 (Nf)] HYDROcodone/APAP 10-325 [[place] 1 each PO BID #10 tablet 10/31/16 Unknown Rx 10-325 mg TAB] Active Meds: Active Medications Acetaminophen (Tylenol) 650 mg PO Q4H PRN PRN Reason: Pain MILD(1-3)/Fever >100.5/[place] Acetaminophen/Hydrocodone Bitart ([place] 10/325) 1 each PO Q6H PRN PRN Reason: Pain, Moderate (4-6) Albuterol/Ipratropium (Duoneb 0.5 Mg-3 Mg/3 Ml Soln) 1 ampul IH Q6HRT [facility] Last Admin: 11/01/16 08:46 Dose: 1 ampul Alprazolam (Xanax) 1 mg PO TID PRN PRN Reason: Anxiety Last Admin: 10/31/16 22:40 Dose: 1 mg Atenolol (Tenormin) 50 mg PO QDAY [facility] Last Admin: 11/01/16 09:05 Dose: 50 mg Bisacodyl (Dulcolax) 10 mg NV QDAY PRN PRN Reason: Constipation unrelieved by MOM Docusate Sodium (Colace) 100 mg PO BID [facility] Last Admin: 11/01/16 09:05 Dose: 100 mg Enoxaparin Sodium (Lovenox) 40 mg SUB-Q QDAY [facility] Last Admin: 11/01/16 09:04 Dose: 40 mg Famotidine (Pepcid) 10 mg PO BID [facility] Last Admin: 11/01/16 09:04 Dose: 10 mg Guaifenesin (Robitussin Dm) 10 ml PO Q4H PRN PRN Reason: Cough Last Admin: 11/01/16 09:20 Dose: 10 ml Ceftriaxone Sodium (Rocephin/Ns 1 Gm/50 Ml) 1 gm in 50 mls @ 100 mls/hr IV QHS [facility] Last Admin: 10/31/16 22:50 Dose: 100 mls/hr Lidocaine HCl (Magic Mouthwash) 15 ml PO TID [facility] Magnesium Hydroxide (Milk Of Magnesia) 30 ml PO Q4H PRN PRN Reason: Constipation Methylprednisolone Sodium Succinate (Solu-Medrol) 40 mg IV Q6HR [facility] Last Admin: 11/01/16 08:02 Dose: 40 mg Nicotine (Habitrol) 21 mg TD QDAY [facility] Last Admin: 11/01/16 09:04 Dose: 21 mg Promethazine HCl (Phenergan) 12.5 mg PO Q6H PRN PRN Reason: Nausea Last Admin: 10/31/16 02:45 Dose: 12.5 mg Promethazine HCl (Phenergan) 25 mg NV Q6HR PRN PRN Reason: Nausea Zolpidem Tartrate (Ambien) 5 mg PO QHS [facility] Last Admin: 11/01/16 00:09 Dose: 5 mg Review of Systems All systems: negative Physical Examination Vital signs: Vital Signs Pulse Resp Pulse Ox 90 20 98 10/30/16 21:56 10/30/16 21:56 10/30/16 21:56 General appearance: no acute distress, alert Eyes: non-icteric ENT: other (edentulous) Effort: normal Ascultation: Bilateral: diminished breath sounds Percussion: Bilateral: not dull Tactile fremitus: Bilateral: normal Cardiovascular: regular rate and rhythm Gastrointestinal: normoactive bowel sounds Extremities: no cyanosis, no edema Musculoskeletal: no deformities normal mental status, non-focal exam Results - Laboratory Findings CBC and BMP: 11/01/16 07:35 11/01/16 07:35 ABG POC ABG pH 7.210 (7.35-7.45) L 10/31/16 03:14 POC ABG pCO2 41.2 (35-45) 10/31/16 03:14 POC ABG pO2 54 (80-105) L 10/31/16 03:14 POC ABG HCO3 16.5 10/31/16 03:14 POC ABG Total CO2 18 10/31/16 03:14 POC ABG O2 Sat 81 10/31/16 03:14 PT/INR, D-dimer D-Dimer 1001.95 ng/mlDDU (0-234) H 10/30/16 22:37 Abnormal lab findings: Abnormal Labs 11/01/16 11/01/16 07:35 07:35 RBC 3.47 L MCV 98 H D Lymph % (Auto) 8.2 L Lymph # 0.6 L Seg Neutrophils % 88.3 H Creatinine 0.6 L Glucose 129 H - Diagnostic Findings CT scan - chest: image reviewed Assessment and Plan 56 y/o female with known COPD, continued smoking, admitted with COPD exacerbation 1. Unsure of exact question from [facility]. Consult says that patient is coughing up blood. Patient does not endorse this. Wants to go home. Currently on IV solumedrol and abx therapy. Would consider switching to Prednisone 60 and tapering from there over the next 12-14 days. Smoking cessation encouraged. Compared CTA done this month with CTA from AUGUST of 2015. Right lower lung braxton are actually stable, if not better. No indication for bronch at this time. There does appear to be some ground glass on both CT's. could consider checking BNP and consider a trial of lasix. Otherwise patient wants to be discharge. We will sign off. Call if any further questions or concerns. Needs walk test to assess O2 needs prior to discharge.
[2016-11-01] MEDS ORDERED: MAGIC MOUTHWASH PO SCH (14:00)
--- NOTE | 2016-11-01 15:39 | Discharge Summary ---
Providers - Providers Date of Admission: 10/31/16 09:03 Date of discharge: 11/01/16 Attending physician: DILIP BOB MD 11/01/16 08:20 Consult to Physician [CONS] Routine Consulting Provider: JYOTI ESPINAL Reason For Exam: blood cough with PNA Place consult to:: yes Notified:: office Phone number called:: [phone] Was contact made?: Yes If yes, spoke with:: annalise Time called:: 10:52 Primary care physician: CEMENTER MACHINE JOINER Hospitalization Reason for admission: shortness of breath Condition: Stable Hospital course: Patient is a 56 year old female with past medical historyof COPD, HTN and GERD who presenting with 3 weeks of worsening dyspnea on light exertion, and bloody cough. Patient over a week ago the patient was at his normal baseline state of health. Now she has had progressive worsening of his dyspnea on exertion (SEGURA) to where she cannot walk across a room or talk while sitting up without becoming short of breath. She says the quality of her breathing is just like suffocating but she denies burning in her lungs or other feelings. she says that hot temperatures bring on her breathing troubles and coughing while cold temperatures will help relieve those symptoms. Additionally, she has a productive cough with blood tinged sputum. She has tried oxygen supplement to help her with her shortness of breath, but did not help much. She has had no fevers, chills, or night sweats. He has no allergies, seasonal or otherwise. She reports feeling like she is wheezing. She denies orthopnea, and no paroxysmal nocturnal dyspnea. No hx of recurrent pneumonia. She has no sick contact, TB exposure that she knows of. The patient was started on empiric coverage for possible pneumonia. Pulmonology was also consulted due to the patient stated to me categorically that she does cough up kamran blood. She does stress this point multiple times. One professor of astronomy evaluation the patient denied any hemoptysis. On my reevaluation the patient asked for pain medication and continued to wipe her eyes as she cried out in pain but ironically there was no tears are noted. She informs me initially that the Liberty that she was started on was working, we changed to methadone it did not work anymore. A 5 by spelled that we cannot duplicate medications she wanted the methadone and lumbar Liberty but she does not follow up with any pain specialist for continued management. She does have a primary care doctor who she states manages her pain she unfortunately continues to smoke which I have counseled her 50 minutes on resources available. Per pulmonary she will be discharged and follow up with her primary care physician outpatient. Per pulmonary Compared CTA done this month with CTA from AUGUST of 2015. Right lower lung braxton are actually stable, if not better. No indication for bronch at this time. There does appear to be some ground glass on both CT's. could consider checking BNP and consider a trial of lasix "but will defer to PCP Otherwise patient wants to be discharge." Discharge diagnosis pneumonia possible aspiration pneumonitis COPD Exacerbation Tobacco abuse. Hypertension GERD Disposition: - TO HOME OR SELFCARE Time spent for discharge: 35 mins Core Measure Documentation - Palliative Care Palliative Care/ Comfort Measures: Not Applicable - Core Measures Any of the following diagnoses?: none - VTE Discharge Requirements Deep Vein Thrombosis/Pulmonary Embolism Present on Admission: No Exam - Physical Exam Narrative exam: VITAL SIGNS: Reviewed. GENERAL: The patient appeared well nourished and normally developed. Vital signs as documented. HEAD: No signs of head trauma. EYES: Pupils are equal. Extraocular motions intact. EARS: Hearing grossly intact. MOUTH: Oropharynx is normal. NECK: No adenopathy, no JVD. CHEST: Chest with diminished breath sounds bilaterally. No wheezes, rales, or rhonchi. CARDIAC: Regular rate and rhythm. S1 and S2, without murmurs, gallops, or rubs. VASCULAR: No Edema. Peripheral pulses normal and equal in all extremities. ABDOMEN: Soft, without detectable tenderness. No sign of distention. No rebound or guarding, and no masses palpated. Bowel Sounds normal. MUSCULOSKELETAL: Good range of motion of all major joints. Extremities without clubbing, cyanosis or edema. NEUROLOGIC EXAM: Alert and oriented x 3. No focal sensory or strength deficits. Speech normal. Follows commands. PSYCHIATRIC: Mood normal. SKIN: No rash or lesions. - Constitutional Vitals: Temp Pulse Resp BP Pulse Ox 98.3 F 87 18 156/90 95 11/01/16 15:19 11/01/16 15:19 11/01/16 15:19 11/01/16 15:19 11/01/16 08:46 Plan Activity: advance as tolerated, fall precautions Diet: low fat Special Instructions: record daily BP diary, smoking cessation Follow up with: PRIMARY CARE,MD [Primary Care Provider] - 7 Days Prescriptions: ALPRAZolam [Xanax TAB] 1 mg PO BID PRN #10 tablet PRN Reason: Anxiety guaiFENesin DM [Robitussin Dm] 10 ml PO Q4H PRN #20 oral.liqd PRN Reason: Cough HYDROcodone/APAP 10-325 [Liberty 10-325 mg TAB] 1 each PO Q6H PRN #10 tablet PRN Reason: Pain, Moderate (4-6) Nicotine [Habitrol] 21 mg TD QDAY #30 patch
[2016-11-01] MEDS: XANAX PO PRN (16:10)
--- NOTE | 2016-11-01 16:37 | Vascular Lab Report ---
LOWER EXTREMITY VENOUS DUPLEX: REASON FOR EXAM: Elevated d-dimer. COMMENTS ON THE RIGHT: All veins visualized are freely compressible without evidence of internal echogenicity. Flow is spontaneous and phasic throughout. COMMENTS ON THE LEFT: All veins visualized are freely compressible without evidence of internal echogenicity. Flow is spontaneous and phasic throughout. IMPRESSION: No evidence of acute or chronic deep venous thrombosis in either lower extremity.
[2016-11-01 16:44] VITALS: BP 156/90
[2016-11-02] MEDS ORDERED: DELTASONE PO SCH (10:00)
== END 2016-11-01 17:36 | disposition home or self-care (01) | DRG 178 ==
LOC: ED 21:44 → 3A 10-31 09:03
PROVIDERS: ADMIT Internal Medicine; ATTEND Internal Medicine
PROC: 3E0234Z Introduction of Serum, Toxoid and Vaccine into Muscle, Percutaneous Approach (ICD-10-PCS; principal; 2016-10-31)
PROC: 4A033R1 Measurement of Arterial Saturation, Peripheral, Percutaneous Approach (ICD-10-PCS; 2016-10-31)
DX: J69.0 Pneumonitis due to inhalation of food and vomit (principal); J44.1 Chronic obstructive pulmonary disease with (acute) exacerbation; I13.0 Hypertensive heart and chronic kidney disease with heart failure and stage 1 through stage 4 chronic kidney disease, or unspecified chronic kidney disease; K21.9 Gastro-esophageal reflux disease without esophagitis; Z83.3 Family history of diabetes mellitus; Z82.49 Family history of ischemic heart disease and other diseases of the circulatory system; Z88.8 Allergy status to other drugs, medicaments and biological substances; I50.9 Heart failure, unspecified; N18.9 Chronic kidney disease, unspecified; M06.9 Rheumatoid arthritis, unspecified; G25.81 Restless legs syndrome; G89.29 Other chronic pain; Z90.49 Acquired absence of other specified parts of digestive tract; F17.210 Nicotine dependence, cigarettes, uncomplicated; Z60.2 Problems related to living alone; Z23 Encounter for immunization
CPT/HCPCS: 36415; 71020; 71275; 80048; 82140; 82803; 84484; 85025; 85379; 90732; 93005; 93010; 93970; 94640; 94760; 96365; 96375; 99285; J0456; J0696; J1170; J1650; J2270; J2920; J2930; J7030; J7050; Q0169; Q9967

== ENCOUNTER 2016-11-14 16:19 | Emergency (ER) | payer OTHER ==
[2016-11-14 16:57] LABS: Hematocrit 38.7 % (30.3-42.9); Hemoglobin 13.1 gm/dl (10.1-14.3); Mean Corpuscular HGB Conc 34 % (30-34); Mean Corpuscular Hemoglobin 33 pg (28-32); Mean Corpuscular Volume 97 fl (79-97); Platelet Count 259 K/mm3 (140-440); Red Blood Count 3.98 M/mm3 (3.65-5.03); Red Cell Distribution Width 14.5 % (13.2-15.2); White Blood Count 8.5 K/mm3 (4.5-11.0)
[2016-11-14 17:15] LABS: Anion Gap 21 mmol/L; BUN/Creatinine Ratio 23.33; Blood Urea Nitrogen 21 mg/dL (7-17); Carbon Dioxide 21 mmol/L (22-30); Glucose 180 mg/dL (65-100); Potassium 4.9 mmol/L (3.6-5.0); Sodium 137 mmol/L (137-145)
[2016-11-14 17:44] LABS: Basophils % (Manual) 0 % (0.0-1.8); Blastocytes % (Manual) 0 %; Eosinophils % (Manual) 0 % (0.0-4.3)
[2016-11-14 17:45] LABS: Anisocytosis 1+; Diff Status Complete
--- NOTE | 2016-11-14 20:41 | Emergency Department Report ---
HPI - General Chief Complaint: Upper Respiratory Infection Time Seen by Provider: 11/14/16 20:11 - HPI HPI: Patient here reports that her lungs still hurts from pneumonia and she was admitted 2 weeks ago. She says she is requesting [place] and other pain medication. Patient when she was last here was referred to pain specialist in to her primary care physician for pain management. She has chronic back pain and was in methadone at some point. Patient was admitted from [id number] for difficulty breathing in and diffuse infiltrate in right lower lobe right middle lobe and left upper lobe. She was treated with Rocephin and azithromycin. She presented with difficulty breathing and ended did a CTA which showed no PE but moderate emphysema. So has lower extremity Doppler done which showed no DVT or SVT. In reading the previous note patient was complaining of lung pain and was requesting medication for pain and they referred her back to her PCP to manage her chronic pain. Patient now said that she is here because she wants pain medication. She says she is taking Tylenol for and that is not helping. I discussed the patient that I will need to evaluate her x-ray and will discuss this further. She then said that her primary care physician is out of town and she cannot reach him so if I can write prescription for Tylenol No. 4 for her. denies vomiting, denies any fever or chills. She says she is short of breath but nothing from her usual shortness of breath from emphysema. Oxygen at home as needed. She is also complaining of chronic back pain and her pain is at 10 out of 10 to her lungs and her back. Pain is better at rest and worse when moving around. ED Past Medical Hx - Past Medical History Previous Medical History?: Yes Hx Hypertension: Yes Hx Congestive Heart Failure: Yes Hx Diabetes: No Hx Renal Disease: Yes (chronic renal insufficiency) Hx Arthritis: Yes (rheumatoid) Hx Asthma: No Hx COPD: Yes Hx Dementia: (forgetful at times) Hx HIV: No Additional medical history: Pancreatitis. Hepatitis C. chronic back pain. restless leg syndrome - Surgical History Past Surgical History?: Yes Hx Cholecystectomy: Yes - Family History Family history: hypertension - Social History Smoking Status: Current Every Day Smoker Substance Use Type: None Other Social History: single - Medications Home Medications: Home Medications Medication Instructions Recorded Confirmed Last Taken Type Atenolol [Tenormin] 50 mg PO DAILY #30 tablet 08/30/15 10/31/16 Unknown Rx Docusate Sodium [Colace CAP] 100 mg PO BID #30 capsule 08/30/15 10/31/16 Unknown Rx Famotidine [Pepcid] 10 mg PO BID #60 tablet 08/30/15 10/31/16 Unknown Rx Promethazine [Phenergan SUPPOS] 25 mg [place] Q6HR PRN #14 supp.rect 08/30/15 Unknown Rx Zolpidem [Ambien] 5 mg PO QHS #30 tablet 08/30/15 10/31/16 Unknown Rx Budesoni/Formoterol 80-4.5(Nf) 2 puff IH BID 10/31/16 10/31/16 Unknown History [Symbicort 80-4.5 (Nf)] ALPRAZolam [Xanax TAB] 1 mg PO BID PRN #10 tablet 11/01/16 Unknown Rx HYDROcodone/APAP 10-325 [[place] 1 each PO Q6H PRN #10 tablet 11/01/16 Unknown Rx 10-325 mg TAB] Nicotine [Habitrol] 21 mg TD QDAY #30 patch 11/01/16 Unknown Rx guaiFENesin DM [Robitussin Dm] 10 ml PO Q4H PRN #20 oral.liqd 11/01/16 Unknown Rx predniSONE [Deltasone] 10 mg PO .TAPER #48 tab 11/01/16 Unknown Rx ED Review of Systems ROS: Stated complaint: COUGH/HX OF PNEUMONIA Other details as noted in HPI Comment: All other systems reviewed and negative Constitutional: denies: chills, fever ENT: denies: ear pain, throat pain, dental pain, congestion Respiratory: cough, shortness of breath, SOB with exertion, SOB at rest. denies : orthopnea, stridor, wheezing Cardiovascular: denies: chest pain, palpitations, edema, syncope Gastrointestinal: denies: abdominal pain, nausea, vomiting, diarrhea Musculoskeletal: back pain. denies: joint swelling, arthralgia, myalgia Skin: denies: rash Neurological: denies: headache, abnormal gait, vertigo Physical Exam - Physical Exam Vital Signs: Vital Signs 11/14/16 16:31 Temperature 98.9 F Pulse Rate 84 Respiratory 18 Rate Blood Pressure 142/91 O2 Sat by Pulse 100 Oximetry General: This is a 56-year-old female well-nourished well-developed in no acute distress. Physical Exam: Head: Normocephalic, atraumatic. No abrasions, laceration or contusion Neck: Supple, no adenopathy. Full range of motion. No C-spine tenderness. No muscular tenderness Ears: Bilateral TMs pearly fernandez, bilaterally EAC without any redness swelling or drainage. Nose: Luca nasal mucosa without any erythema or congestion. No drainage. No maxillary or frontal sinus tenderness. Mouth: Moist, no pharyngeal exudate or erythema. Uvula is midline and oral airways patent. Tongue is normal. No trismus. No peritonsillar abscess. CV:S1, S2 regular rate and rhythm Lungs: Diminished air entry throughout lung braxton due to chronic emphysema. Normal work of breathing and no use of accessory muscles. She deteriorates at 18 Abdomen: Nontender the palpation in all quadrants, no guarding or rebound tenderness. No CVA tenderness and normal bowel sounds in all quadrants. Extremity: No clubbing, cyanosis or edema. +2 pulses in all extremities. No neurovascular compromise. Capillary refill is less than 3 seconds. Good color , sensation, movement and temperature in all extremities. Able to ambulate without any difficulties. MSK: Full Range of motion to all extremities, no joint crepitus, deformity, erythema, swelling. No signs of tendon or ligament injury. +5/5 strength in all extremities Skin: Clean dry and intact, no rash or lesions. PSYCH: Normal mood and behavior. Neurological: GCS of 15, speech is clear and fluid, alert and oriented 3. Normal gait, negative Romberg and negative pronator drift. No motor or sensory deficit. No focal neurological deficit. Back: No vertebral tenderness, no paraspinal tenderness, no saddle anesthesia,. Patient able to relate without any difficulties. ED Course Vital Signs 11/14/16 16:31 Temperature 98.9 F Pulse Rate 84 Respiratory 18 Rate Blood Pressure 142/91 O2 Sat by Pulse 100 Oximetry - Reevaluation(s) Reevaluation #1: 11/14/16 21:52 She given Percocet 5/25 2 tablets in emergency room for chronic pain. ED Medical Decision Making - Lab Data Result diagrams: 11/14/16 16:39 11/14/16 16:39 Lab Results 07/26/17 07/26/17 Range/Units 16:39 16:39 WBC 8.5 (4.5-11.0) K/mm3 RBC 3.98 (3.65-5.03) M/mm3 Hgb 13.1 (10.1-14.3) gm/dl Hct 38.7 (30.3-42.9) % MCV 97 (79-97) fl MCH 33 H (28-32) pg MCHC 34 (30-34) % RDW 14.5 (13.2-15.2) % Plt Count 259 (140-440) K/mm3 Add Manual Diff Complete Total Counted 100 Seg Neutrophils % Paperboard Boxes Estimator Seg Neuts % (Manual) 91.0 H (40.0-70.0) % Band Neutrophils % 0 % Lymphocytes % (Manual) 6.0 L (13.4-35.0) % Reactive Lymphs % (Man) 0 % Monocytes % (Manual) 3.0 (0.0-7.3) % Eosinophils % (Manual) 0 (0.0-4.3) % Basophils % (Manual) 0 (0.0-1.8) % Metamyelocytes % 0 % Myelocytes % 0 % Promyelocytes % 0 % Blast Cells % 0 % Nucleated RBC % Not Reportable Seg Neutrophils # Man 7.7 (1.8-7.7) K/mm3 Band Neutrophils # 0.0 K/mm3 Lymphocytes # (Manual) 0.5 L (1.2-5.4) K/mm3 Abs React Lymphs (Man) 0.0 K/mm3 Monocytes # (Manual) 0.3 (0.0-0.8) K/mm3 Eosinophils # (Manual) 0.0 (0.0-0.4) K/mm3 Basophils # (Manual) 0.0 (0.0-0.1) K/mm3 Metamyelocytes # 0.0 K/mm3 Myelocytes # 0.0 K/mm3 Promyelocytes # 0.0 K/mm3 Blast Cells # 0.0 K/mm3 WBC Morphology Not Reportable Hypersegmented Neuts Not Reportable Hyposegmented Neuts Not Reportable Hypogranular Neuts Not Reportable Smudge Cells Not Reportable Toxic Granulation Not Reportable Toxic Vacuolation Not Reportable Dohle Bodies Not Reportable Pelger-Huet Anomaly Not Reportable Shavon Rods Not Reportable Platelet Estimate Appears normal Clumped Platelets Not Reportable Plt Clumps, EDTA Not Reportable Large Platelets Not Reportable Giant Platelets Not Reportable Platelet Satelliting Not Reportable Plt Morphology Comment Not Reportable RBC Morphology Not Reportable Dimorphic RBCs Not Reportable Polychromasia Not Reportable Hypochromasia Not Reportable Poikilocytosis Not Reportable Anisocytosis 1+ Microcytosis Not Reportable Macrocytosis Not Reportable Spherocytes Not Reportable Pappenheimer Bodies Not Reportable Sickle Cells Not Reportable Target Cells Not Reportable Tear Drop Cells Not Reportable Ovalocytes Not Reportable Helmet Cells Not Reportable Cash-Parachute Bodies Not Reportable [place] Rings Not Reportable [place] Cells Not Reportable Bite Cells Not Reportable Crenated Cell Not Reportable Elliptocytes Not Reportable Acanthocytes (Spur) Not Reportable Rouleaux Not Reportable Hemoglobin C Crystals Not Reportable Schistocytes Not Reportable Malaria parasites Not Reportable Luis Bodies Not Reportable Hem Pathologist Commnt No Sodium 137 (137-145) mmol/L Potassium 4.9 (3.6-5.0) mmol/L Chloride 100.0 (98-107) mmol/L Carbon Dioxide 21 L (22-30) mmol/L Anion Gap 21 mmol/L BUN 21 H (7-17) mg/dL Creatinine 0.9 (0.7-1.2) mg/dL Estimated GFR > 60 ml/min BUN/Creatinine Ratio 23.33 % Glucose 180 H (65-100) mg/dL Calcium 9.0 (8.4-10.2) mg/dL - EKG Data -: EKG Interpreted by Me (by attending physician) EKG shows normal: sinus rhythm (6 bpm) - EKG Data When compared to previous EKG there are: no significant change Interpretation: no acute changes - Radiology Data Radiology results: report reviewed Chest x-ray revealed interval improvement in irrigation of right lung bases. No new infiltrate is identified. Previous x-ray from October 31 showed that patient had infiltrates and she was treated. - Medical Decision Making MDM: Assessment/plan ED course: She presented to the emergency room complaining off pain in her lungs from pneumonia from where she was admitted on 10/31/2016. She is requesting in [place] and says she is here to get pain medication. X-ray revealed no acute finding. CTA and she'll from 10/31/2016 showed no pulmonary embolism but patient had infiltrates to right lower and middle lung and left upper lung requesting a pneumonia. She was admitted to the hospital for 2 days and treated with antibiotic and steroid. She was also seen by prior pulmonary doctor in Hospital. Pt had similar complaints in Hospital prior to discharge and she was advised by that she needs to have her primary human services care specialist chronic pain or to follow-up with pain specialist. Vital signs are stable and she is afebrile with pulse ox at 100% and no tachypnea. Patient ambulated in an room and talking the phone without any respiratory distress. I discussed the patient deny cannot give her narcotics for going home as she has chronic emphysema and narcotics can make her have respiratory distress and stop her breathing. She says she takes Tylenol No. 4 at home and it's not strong enough. Her primary care physician size just her that she needs to follow up with her primary care physician to manage her chronic back pain. I told her I' ll give her pain medication times one in emergency room but for any other narcotic she'll need to follow up with primary care or seek pain management. He then asked if she can have a prescription for Tylenol No. 4 because she ran out and her primary care physician is in [place]. Patient given Percocet 5/325 2 tablets emergency room. I discussed her lab work and x-ray results with her and she voiced understanding. Diagnostics and laboratory results: Chest x-ray today shows interval improvement and irrigation of right lung bases and no new infiltrates is defined. CBC is stable and BNP with BUNs of 21 creatinine of 0.9 and her blood sugars at 180 which she says she ate. Diagnosis. Acute exacerbation of chronic back pain, shortness of breath secondary to COPD/emphysema Medication: Patient given Percocet 5/325 mg 2 tablets in emergency room Pt discharged home to follow up with her primary care physician. She was understanding of discharge instruction and treatment plan and I told her she needs follow-up with her private physician within 2 days. I also discussed with her that she needs to have her physician refer her to pain management. Patient discharged home with her friends and she is in stable condition Critical care attestation.: If time is entered above; I have spent that time in minutes in the direct care of this critically ill patient, excluding procedure time. ED Disposition Clinical Impression: Acute exacerbation of chronic low back pain, Shortness of breath COPD (chronic obstructive pulmonary disease) Qualifiers: COPD type: emphysema Emphysema type: centrilobular Qualified Code(s): J43.2 - Centrilobular emphysema Disposition: DC-01 TO HOME OR SELFCARE Is pt being admited?: No Does the pt Need Aspirin: No Condition: Stable Instructions: Chronic Obstructive Pulmonary Disease (ED), Chronic Back Pain (ED ), Dyspnea (ED) Additional Instructions: Follow-up with your primary care in 2 days Please avoid taking narcotics at home as this can suppress her respiration Referrals: PRIMARY CAREMD [Primary Care Provider] - 11/16/16 NITIN FRANK MD [Staff Physician] - 11/16/16 Forms: Work/School Release Form(ED)
--- NOTE | 2016-11-14 21:17 | XRay Report ---
FINAL REPORT EXAM: XR CHEST ROUTINE 2V HISTORY: shortness of breath TECHNIQUE: PA and lateral chest radiographs PRIORS: Chest radiograph 10/30/2016 FINDINGS: There has been interval improvement in aeration of the right lung base.No focal consolidations are seen in the lungs and there are no pleural effusions.The cardiomediastinal silhouette is within normal limits for size and contour. No acute osseous abnormality is identified. IMPRESSION: 1. Interval improvement in aeration of the right lung base. 2. No new infiltrate is identified.
[2016-11-14] MEDS ORDERED: PERCOCET 5/325 PO ONE (21:52)
[2016-11-14 22:14] VITALS: BP 156/102
== END 2016-11-14 22:12 | disposition home or self-care (01) ==
LOC: ED 16:19
DX: J43.2 Centrilobular emphysema (principal); M54.5 Low back pain; R06.02 Shortness of breath; G89.29 Other chronic pain; I10 Essential (primary) hypertension; I50.9 Heart failure, unspecified; M06.9 Rheumatoid arthritis, unspecified; J44.9 Chronic obstructive pulmonary disease, unspecified; G25.81 Restless legs syndrome; F17.200 Nicotine dependence, unspecified, uncomplicated
CPT/HCPCS: 36415; 71020; 80048; 85007; 85025; 87040; 93005; 93010

== ENCOUNTER 2018-01-13 09:10 | Outpatient (CLI) | payer OTHER ==
[2018-01-13] MEDS ORDERED: PROVENTIL IH ONE (10:04)
--- NOTE | 2018-01-13 11:42 | XRay Report ---
ROUTINE CHEST, TWO VIEWS: COPD, hep C PA and lateral views demonstrate the heart and mediastinal contour to be of normal size and shape. The lungs are clear and fully expanded and the soft tissues and bony structures are normal. IMPRESSION: Normal study.
--- NOTE | 2018-01-13 13:54 | XRay Report ---
AP and lateral lumbar spine: Is a grade 1 anterior L4 subluxation relative to L5. The L4-5 interspace is moderately narrowed. Mild anterior traction spurs are noted superiorly at the L2-L4 levels. Degenerative narrowing of the apophyseal joints are noted between L3-4 and L4-5. The vertebral height is maintained. The bones may be slightly demineralized. On the frontal projection there is a very minimal dextroscoliosis. When compared to her prior examination in April 2014 the findings have remained relatively stable. Impression: Degenerative L4-5 changes with subluxation. L2-L4 spondylosis.
== END 2018-01-13 09:11 | disposition home or self-care (01) ==
LOC: PF 09:10
PROVIDERS: ATTEND Internal Medicine
DX: Z02.71 Encounter for disability determination (principal); M47.896 Other spondylosis, lumbar region; I11.0 Hypertensive heart disease with heart failure; I50.9 Heart failure, unspecified; M19.90 Unspecified osteoarthritis, unspecified site; J43.9 Emphysema, unspecified; Z90.49 Acquired absence of other specified parts of digestive tract
CPT/HCPCS: 71046; 72100; 94060; 94640

== ENCOUNTER 2018-06-06 15:22 | Emergency (ER) | payer OTHER ==
--- NOTE | 2018-06-06 15:36 | Emergency Department Report ---
Chief Complaint: Chest Pain Stated Complaint: RT HAND HUDSON/CHEST PAIN Time Seen by Provider: 06/06/18 15:31 - HPI History of Present Illness: co r arm pain pt is tremulous no cp no sob her elevated copd anxiety chronic pain- denies drug use abc intact [address] T wave changes bp elevated MSE completed - Exam Vital Signs: Vital Signs 06/06/18 15:27 Temperature 98.3 F Pulse Rate 122 H Respiratory 18 Rate Blood Pressure 157/110 O2 Sat by Pulse 97 Oximetry MSE screening note: Focused history and physical exam performed. Due to findings the following was ordered: ED Disposition for MSE Condition: Stable
[2018-06-06 16:08] LABS: Basophils # (Auto) 0.1 K/mm3 (0.0-0.1); Basophils % (Auto) 0.8 % (0.0-1.8); Eosinophils # (Auto) 0.1 K/mm3 (0.0-0.4); Eosinophils % (Auto) 1.1 % (0.0-4.3); Hematocrit 40.7 % (30.3-42.9); Lymphocytes # (Auto) 1.9 K/mm3 (1.2-5.4); Lymphocytes % (Auto) 29.5 % (13.4-35.0); Mean Corpuscular HGB Conc 34 % (30-34); Mean Corpuscular Volume 92 fl (79-97); Monocytes # (Auto) 0.5 K/mm3 (0.0-0.8); Platelet Count 228 K/mm3 (140-440); Red Blood Count 4.42 M/mm3 (3.65-5.03); Red Cell Distribution Width 14.8 % (13.2-15.2)
[2018-06-06 16:25] LABS: Alanine Aminotransferase 9 units/L (7-56); Albumin 4.4 g/dL (3.9-5); BUN/Creatinine Ratio 11; Blood Urea Nitrogen 11 mg/dL (7-17); Calcium 9.6 mg/dL (8.4-10.2); Hemolysis Index 17
[2018-06-06 18:25] LABS: Bacteria,Urine 3+ /HPF (Negative); Bilirubin,Urine NEG (Negative); Blood,Urine NEG (Negative); Color,Urine Yellow (Yellow); Mucus,Urine FEW /HPF; Protein,Urine <15 mg/dL mg/dL (Negative); Urobilinogen,Urine < 2.0 mg/dL (<2.0)
[2018-06-06 18:27] LABS: Amphetamine Screen,Urine PRESUMPTIVE NEGATIVE; Cannabinoid Screen,Urine PRESUMPTIVE NEGATIVE; Cocaine Screen,Urine PRESUMPTIVE NEGATIVE; Methadone Screen,Urine PRESUMPTIVE NEGATIVE; Opiate Screen,Urine PRESUMPTIVE NEGATIVE
[2018-06-06 18:40] LABS: Benzodiazepines Screen,Urine PRESUMPTIVE POSITIVE
[2018-06-06] MEDS ORDERED: NORCO 5/325 PO ONE (21:00)
[2018-06-06] MEDS ORDERED: XYLOCAINE 1% MPF 5 mL INFILTRATI ONE (21:00)
[2018-06-06] MEDS ORDERED: ROCEPHIN IM ONE (21:00)
--- NOTE | 2018-06-06 22:18 | Emergency Department Report ---
ED General Adult HPI - General Chief complaint: Chest Pain Stated complaint: RT HAND HUDSON/CHEST PAIN Time Seen by Provider: 06/06/18 15:31 Source: patient Mode of arrival: Ambulatory Limitations: No Limitations - History of Present Illness Initial comments: This is a 57-year-old white female who presents for who presents for extremity pain acute on chronic, and pt no gabapentin xanax, and hydrocodone rx pt by pcp but unable to see pcp for last month states pain is increasing and she is out of medication, request referral for new pcp affiliation. pt in is described ast 4/10 burning aching bilat shoulders radiating to hands, pt denies fall injury or trauma, pt now advises that she no money to purchase medications. pt has secondary compliant of urinary frequency /v no hematuria no feve no chills no nv Severity scale (0 -10): 5 Quality: burning, aching (name) Consistency: constant Improves with: none Worsens with: movement, other (activity ) Associated Symptoms: malaise Treatments Prior to Arrival: none - Related Data Home Medications Medication Instructions Recorded Confirmed Last Taken Budesoni/Formoterol 80-4.5(Nf) 2 puff IH BID 10/31/16 10/31/16 Unknown [Symbicort 80-4.5 (Nf)] Previous Rx's Medication Instructions Recorded Last Taken Type Atenolol [Tenormin] 50 mg PO DAILY #30 tablet 08/30/15 Unknown Rx Docusate Sodium [Colace CAP] 100 mg PO BID #30 capsule 08/30/15 Unknown Rx Famotidine [Pepcid] 10 mg PO BID #60 tablet 08/30/15 Unknown Rx Zolpidem [Ambien] 5 mg PO QHS #30 tablet 08/30/15 Unknown Rx ALPRAZolam [Xanax TAB] 1 mg PO BID PRN #10 tablet 11/01/16 Unknown Rx Acetaminophen [Tylenol Extra 1,000 mg PO Q6H PRN #60 tablet 06/06/18 Unknown Rx Strength] Gabapentin [Neurontin] 600 mg PO TID #90 capsule 06/06/18 Unknown Rx Sulfamethoxazole/Trimethoprim 1 each PO BID 10 Days #20 tablet 06/06/18 Unknown Rx [Bactrim DS TAB] Allergies Allergy/AdvReac Type Severity Reaction Status Date / Time metoclopramide HCl Allergy Hives Verified 06/06/18 15:23 [From Reglan] ondansetron HCl [From Zofran] Allergy Hives Verified 06/06/18 15:23 ED Review of Systems ROS: Stated complaint: RT HAND HUDSON/CHEST PAIN Other details as noted in HPI Constitutional: denies: chills, fever Eyes: denies: eye pain, eye discharge, vision change ENT: denies: ear pain, throat pain Respiratory: denies: cough, shortness of breath, wheezing Cardiovascular: denies: chest pain, palpitations Endocrine: no symptoms reported Gastrointestinal: as per HPI Genitourinary: denies: urgency, dysuria, discharge Musculoskeletal: arthralgia, myalgia Skin: denies: rash, lesions Neurological: denies: headache, weakness, paresthesias Psychiatric: denies: anxiety, depression Hematological/Lymphatic: denies: easy bleeding, easy bruising ED Past Medical Hx - Past Medical History Hx Hypertension: Yes Hx Congestive Heart Failure: Yes Hx Diabetes: No Hx Renal Disease: Yes (chronic renal insufficiency) Hx Arthritis: Yes (rheumatoid) Hx Asthma: No Hx COPD: Yes Hx Dementia: (forgetful at times) Hx HIV: No Additional medical history: Pancreatitis. Hepatitis C. chronic back pain. restless leg syndrome - Surgical History Hx Cholecystectomy: Yes - Social History Smoking Status: Current Every Day Smoker - Medications Home Medications: Home Medications Medication Instructions Recorded Confirmed Last Taken Type Atenolol [Tenormin] 50 mg PO DAILY #30 tablet 08/30/15 10/31/16 Unknown Rx Docusate Sodium [Colace CAP] 100 mg PO BID #30 capsule 08/30/15 10/31/16 Unknown Rx Famotidine [Pepcid] 10 mg PO BID #60 tablet 08/30/15 10/31/16 Unknown Rx Zolpidem [Ambien] 5 mg PO QHS #30 tablet 08/30/15 10/31/16 Unknown Rx Budesoni/Formoterol 80-4.5(Nf) 2 puff IH BID 10/31/16 10/31/16 Unknown History [Symbicort 80-4.5 (Nf)] ALPRAZolam [Xanax TAB] 1 mg PO BID PRN #10 tablet 11/01/16 Unknown Rx Acetaminophen [Tylenol Extra 1,000 mg PO Q6H PRN #60 tablet 06/06/18 Unknown Rx Strength] Gabapentin [Neurontin] 600 mg PO TID #90 capsule 06/06/18 Unknown Rx Sulfamethoxazole/Trimethoprim 1 each PO BID 10 Days #20 tablet 06/06/18 Unknown Rx [Bactrim DS TAB] ED Physical Exam - General Limitations: No Limitations (4 with) General appearance: alert, in no apparent distress - Head Head exam: Present: atraumatic, normocephalic - Eye Eye exam: Present: normal appearance, PERRL, EOMI Pupils: Present: normal accommodation ( is O Jose) - ENT ENT exam: Present: normal orophraynx ( the left), mucous membranes moist - Neck Neck exam: Present: normal inspection, full ROM. Absent: tenderness, meningismus (For pain before he), lymphadenopathy, thyromegaly - Respiratory Respiratory exam: Present: normal lung sounds bilaterally. Absent: respiratory distress, wheezes, stridor, chest wall tenderness (on 1 on the right right right) - Cardiovascular Cardiovascular Exam: Present: regular rate ( is), normal rhythm, normal heart sounds. Absent: systolic murmur, diastolic murmur, rubs, gallop - GI/Abdominal GI/Abdominal exam: Present: soft, normal bowel sounds - Rectal Rectal exam: Present: deferred (finger were) - Extremities Exam Extremities exam: Present: normal inspection, full ROM, normal capillary refill. Absent: pedal edema, joint swelling, calf tenderness (injury.) - Back Exam Back exam: Present: normal inspection ( no), full ROM. Absent: tenderness, CVA tenderness (R), CVA tenderness (L), muscle spasm, paraspinal tenderness, vertebral tenderness, rash noted (Some back) - Neurological Exam Neurological exam: Present: alert, oriented X3, CN II-XII intact (1), normal gait, reflexes normal - Psychiatric Psychiatric exam: Present: normal affect, normal mood - Skin Skin exam: Present: warm, dry, intact, normal color. Absent: rash ED Course Vital Signs 06/06/18 15:27 Temperature 98.3 F Pulse Rate 122 H Respiratory 18 Rate Blood Pressure 157/110 O2 Sat by Pulse 97 Oximetry ED Medical Decision Making - Lab Data Result diagrams: 06/06/18 15:47 06/06/18 15:47 Labs 06/06/18 06/06/18 06/06/18 15:47 15:47 16:09 WBC 6.6 RBC 4.42 Hgb 14.0 Hct 40.7 MCV 92 MCH 32 MCHC 34 RDW 14.8 Plt Count 228 Lymph % (Auto) 29.5 Runnels % (Auto) 7.0 Eos % (Auto) 1.1 Baso % (Auto) 0.8 Lymph # 1.9 Runnels # 0.5 Eos # 0.1 Baso # 0.1 Seg Neutrophils % 61.6 Seg Neutrophils # 4.1 D-Dimer 154.95 Sodium 137 Potassium 4.2 Chloride 100.6 Carbon Dioxide 24 Anion Gap 17 BUN 11 Creatinine 1.0 Estimated GFR 58 BUN/Creatinine Ratio 11 Glucose 85 Calcium 9.6 Total Bilirubin 0.40 AST 15 ALT 9 Alkaline Phosphatase 88 Troponin T < 0.010 Total Protein 9.1 H Albumin 4.4 Albumin/Globulin Ratio 0.9 TSH Urine Color Urine Turbidity Urine pH Ur Specific Lynn Urine Protein Urine Glucose (UA) Urine Ketones Urine Blood Urine Nitrite Urine Bilirubin Urine Urobilinogen Ur Leukocyte Esterase Urine WBC (Auto) Urine RBC (Auto) U Epithel Cells (Auto) Urine Bacteria (Auto) Urine Mucus Urine Opiates Screen Urine Methadone Screen Ur Barbiturates Screen Ur Phencyclidine Scrn Ur Amphetamines Screen U Benzodiazepines Scrn Urine Cocaine Screen U Marijuana (THC) Screen Drugs of Abuse Note 06/06/18 06/06/18 06/06/18 17:15 17:15 21:34 WBC RBC Hgb Hct MCV MCH MCHC RDW Plt Count Lymph % (Auto) Runnels % (Auto) Eos % (Auto) Baso % (Auto) Lymph # Runnels # Eos # Baso # Seg Neutrophils % Seg Neutrophils # D-Dimer Sodium Potassium Chloride Carbon Dioxide Anion Gap BUN Creatinine Estimated GFR BUN/Creatinine Ratio Glucose Calcium Total Bilirubin AST ALT Alkaline Phosphatase Troponin T Total Protein Albumin Albumin/Globulin Ratio TSH 1.200 Urine Color Yellow Urine Turbidity Slightly-cloudy Urine pH 6.0 Ur Specific Lynn 1.004 Urine Protein <15 mg/dl Urine Glucose (UA) Neg Urine Ketones Neg Urine Blood Neg Urine Nitrite Pos Urine Bilirubin Neg Urine Urobilinogen < 2.0 Ur Leukocyte Esterase Mod Urine WBC (Auto) 10.0 H Urine RBC (Auto) 3.0 U Epithel Cells (Auto) 7.0 Urine Bacteria (Auto) 3+ Urine Mucus Few Urine Opiates Screen Presumptive negative Urine Methadone Screen Presumptive negative Ur Barbiturates Screen Presumptive negative Ur Phencyclidine Scrn Presumptive negative Ur Amphetamines Screen Presumptive negative U Benzodiazepines Scrn Presumptive positive Urine Cocaine Screen Presumptive negative U Marijuana (THC) Screen Presumptive negative Drugs of Abuse Note Disclamer - EKG Data EKG shows normal: sinus rhythm Rate: normal, tachycardia - EKG Data When compared to previous EKG there are: no significant change Interpretation: normal EKG (interp by ed attending) - Radiology Data Radiology results: report reviewed, image reviewed no infiltrates no opacities - Medical Decision Making cxr: normal , ekg: nsr, sinust tachycardia, hear score: 1, perc pe: 1, trop # 3<0.01, cmp: normal, cbc: normal, UA: pos for nitrates, wbsc , pt denies vaginal discharge no fever no chills no n/v no diaphoresis no back pain , plan tx for Uti, refill gabapentin, tylenol, follow up with pcp in 2-3 days return to ed if symptoms worsen pt given referral to [facility] in 2 days will return to ed if symptoms worsen pt verbalized agreement and understanding of discharge plan. Critical care attestation.: If time is entered above; I have spent that time in minutes in the direct care of this critically ill patient, excluding procedure time. ED Disposition Clinical Impression: Medication refill UTI (urinary tract infection) Qualifiers: Urinary tract infection type: acute cystitis Hematuria presence: without h ematuria Qualified Code(s): N30.00 - Acute cystitis without hematuria Disposition: - TO HOME OR SELFCARE Is pt being admited?: No Does the pt Need Aspirin: No Condition: Stable Instructions: Urinary Tract Infection in Women (ED) Prescriptions: Acetaminophen [Tylenol Extra Strength] 1,000 mg PO Q6H PRN #60 tablet PRN Reason: pain Gabapentin [Neurontin] 600 mg PO TID #90 capsule Sulfamethoxazole/Trimethoprim [Bactrim DS TAB] 1 each PO BID 10 Days #20 tablet Referrals: ANGEL CARVER MD [Primary Care Provider] - 3-5 Days [facility] [Outside] - 3-5 Days Forms: Work/School Release Form(ED) Time of Disposition: 22:33
[2018-06-06 23:15] VITALS: BP 180/107
--- NOTE | 2018-06-09 14:17 | XRay Report ---
FINAL REPORT EXAM: XRAY CHEST 2 VIEWS HISTORY: CP; COPD TECHNIQUE: PA and lateral views of the chest PRIORS: CXR 11/14/2016 FINDINGS: Lines, tubes, and devices: N/A Lungs and pleura: Trachea is normal in position. Lungs are clear of infiltrate, pleural effusion, va scular congestion, or pneumothorax. No change. Cardiomediastinal silhouette: Cardiac and mediastinal silhouettes are unremarkable. Other: Bony structures are intact. IMPRESSION: No acute cardiopulmonary process seen. No change.
== END 2018-06-06 23:15 | disposition home or self-care (01) ==
LOC: ED 15:22
DX: G89.29 Other chronic pain (principal); M79.641 Pain in right hand; M79.642 Pain in left hand; N39.0 Urinary tract infection, site not specified; I13.0 Hypertensive heart and chronic kidney disease with heart failure and stage 1 through stage 4 chronic kidney disease, or unspecified chronic kidney disease; N18.9 Chronic kidney disease, unspecified; I50.9 Heart failure, unspecified; M19.90 Unspecified osteoarthritis, unspecified site; J44.9 Chronic obstructive pulmonary disease, unspecified; F17.200 Nicotine dependence, unspecified, uncomplicated; Z76.0 Encounter for issue of repeat prescription; Z90.49 Acquired absence of other specified parts of digestive tract; Z86.19 Personal history of other infectious and parasitic diseases; Z88.8 Allergy status to other drugs, medicaments and biological substances
CPT/HCPCS: 36415; 71046; 80053; 80307; 81001; 84443; 84484; 85025; 85379; 93005; 93010; 96372; 99284; J0696